=== PATIENT | female | born 1990 | race Caucasian/White ===

== ENCOUNTER 2020-02-02 15:23 | Emergency (ER) | payer MEDICAID ==
[~2020-02-02] VITALS: Ht 180.3 cm; Wt 49.9 kg
[2020-02-02] MEDS ORDERED: ACETAMINOPHEN500 M5 ORAL (15:32)
[2020-02-02] MEDS ORDERED: IBUPROFEN600 M1 ORAL ×2 (15:32→20:59)
[2020-02-02 15:45] LABS: APPEARANCE,URINE CLOUDY; BILIRUBIN, URINE NEGATIVE (NEGATIVE); COLOR,URINE PALE YELLOW; GLUCOSE, URINE (UA) NEGATIVE (NEGATIVE); KETONES,URINE 2+ (NEGATIVE); LEUKOCYTE ESTERASE ,URINE 1+ (NEGATIVE); NITRITE,URINE NEGATIVE (NEGATIVE); PH,URINE 6.5 (4.5-8.0); PROTEIN,URINE 1+ (NEGATIVE); UROBILINOGEN,URINE NORMAL MG/DL (0.0-1.0)
[2020-02-02] MEDS ORDERED: Morphine Sulfate 2mg/ml Inj(IV/IM USE ONLY) IVP ONE ×2 (15:45→19:45)
[2020-02-02 15:50] VITALS: BP 148/85
--- NOTE | 2020-02-02 15:51 | NUR ---
ED Nurse Note:pt. came with c/o right flank pain, VSS, A/Ox4 ambulatory, blood and urine sent to labs, x-rays done
[2020-02-02 16:00] LABS: BASOPHILS % (AUTO) 1.7 % (0.0-2.0); EOSINOPHILS % (AUTO) 0.3 % (0.0-3.0); HEMATOCRIT 42.7 % (37.0-47.0); HEMOGLOBIN 14.3 G/DL (12.0-16.0); LYMPHOCYTES % (AUTO) 29.5 % (20.0-45.0); MEAN CORPUSCULAR VOLUME 92 FL (80-99); MONOCYTES % (AUTO) 7.1 % (1.0-10.0); NEUTROPHILS % (AUTO) 61.3 % (45.0-75.0); PLATELET COUNT 281 K/UL (150-450); RED BLOOD COUNT 4.65 M/UL (4.20-5.40); WHITE BLOOD COUNT 12.6 K/UL (4.8-10.8)
--- NOTE | 2020-02-02 16:02 | Emergency Room Report ---
History of Present Illness General Chief Complaint: Back Pain-No Injury Source: Patient (Kavya Steele) Present Illness HPI 29-year-old female with history of a renal stone in the right kidney here complaining of sudden onset of 1 day of 10 out of 10 right flank pain with radiation to suprapubic area. Denies any urinary frequency urgency or dysuria at this time. Is very uncomfortable and reports that she has taken Advil for pain with minimal relief. Denies any fall or injury. Denies any hematuria. Denies chest pain, shortness of breath, headache or dizziness. Denies nausea vomiting, fever and chills at this time. (Kavya Steele) Allergies: Coded Allergies: No Known Allergies (Unverified , 02/02/20) COVID-19 Screening Contact w/high risk pt: No Recent Travel to affected area: No Experienced COVID-19 symptoms?: No COVID-19 Testing performed DIGITAL MEDIA COORDINATOR: No (Kavya Steele) Patient History Past Medical History: see triage record Past Surgical History: none Pertinent Family History: none Last Menstrual Period: 01/08/20 Now: No Immunizations: UTD Reviewed Nursing Documentation: PMH: Agreed; PSxH: Agreed (Kavya Steele) Review of Systems All Other Systems: negative except mentioned in HPI (Kavya Steele) Physical Exam Vital Signs Date Time Temp Pulse Resp B/P (MAP) Pulse Ox O2 Delivery O2 Flow Rate FiO2 02/02/20 15:28 98.2 95 19 148/85 (106) 96 Room Air Sp02 EP Interpretation: reviewed, normal General Appearance: alert, mild distress Head: normocephalic, atraumatic Eyes: bilateral eye normal inspection, bilateral eye PERRL ENT: hearing grossly normal, normal pharynx, no angioedema, normal voice Neck: full range of motion, supple/symm/no masses Respiratory: chest non-tender, lungs clear, normal breath sounds, no rhonchi, no retraction, speaking full sentences Cardiovascular #1: regular rate, rhythm, no edema Gastrointestinal: non tender, soft, no mass, no guarding Rectal: deferred Genitourinary: adnexa normal, cervix normal, ext genitalia/vag normal, CVA tenderness (R) Musculoskeletal: back normal, normal range of motion, gait/station normal, non- tender Neurologic: alert, motor strength/tone normal, oriented x3, sensory intact, responsive, speech normal Psychiatric: judgement/insight normal, memory normal, mood/affect normal, no suicidal/homicidal ideation Skin: no rash Lymphatic: no adenopathy (Kavya Steele) Medical Decision Making PA Attestation All diagnoses and treatment plans were reviewed and discussed with my supervising physician Dr. Lafleur (Kavya Steele) Diagnostic Impression: Primary Impression: Cyst, uterus Additional Impression: Renal calculus ER Course 29-year-old female with history of a renal stone in the right kidney here complaining of sudden onset of 1 day of 10 out of 10 right flank pain with radiation to suprapubic area. Denies any urinary frequency urgency or dysuria at this time. Is very uncomfortable and reports that she has taken Advil for pain with minimal relief. Denies any fall or injury. Denies any hematuria. Denies chest pain, shortness of breath, headache or dizziness. Denies nausea vomiting, fever and chills at this time. Ddx considered but are not limited to: appendicitis, cholecystis,, renal stone, gastritis, gastroenteritis, UTI, pylonephritis, SBO, diverticulitis, influenza with GI manifestation, WI, complication with Vital signs: are WNL, pt. is afebrile H&PE are most consistent with: Nonobstructive renal stones, pelvic nodule ORDERS: abdominal CT, abdominal pain set, pelvic abdominal ultrasound, tylenol 3 , ibuprofen ED INTERVENTIONS: NS bolus, Zofran, morphine I signed out the patient to Dr. Lafleur at 9 PM DISCHARGE: At this time pt. is stable for d/c to home. Will provide printed patient care instructions, and any necessary prescriptions. Care plan and follow up instructions have been discussed with the patient prior to discharge. Patient to follow-up with primary doctor also referral for MRI of lumbar region and renal MRI needed if worsening symptoms return to the emergency room (Kavya Steele) ER Course Patient examined by me. History also obtained. Pain now 1-2/10. She has had intermittent pain in the upper flank area which she equates to being a kidney stone. In the past one time she was discharged and then started having fever and chills and needed to be admitted to the hospital. She has had no fever or chills with this episode. Her abdominal exam is benign she has no CVA tenderness at this time. The patient has had help with Flomax in the past. This will be added to the discharge medications. Patient stable for outpatient observation and treatment (Liam Lafleur MD) Chest X-Ray Diagnostic Results Chest X-Ray Diagnostic Results : Chest X-Ray Ordered: Yes # of Views/Limited/Complete: 1 View Indication: Other EP Interpretation: Yes PA Xray: Interpretation reviewed, by supervising MD, and agrees with findings. Interpretation: no consolidation, no effusion, no pneumothorax Impression: No acute disease Electronically Signed by: Kavya Marti PA-C (Kavya Steele) Chest X-Ray Diagnostic Results : Electronically Signed by: Yandel Bolden documentation of Xray reviewed by me and is accurate, Liam Lafleur MD (Liam Lafleur MD) CT/MRI/US Diagnostic Results CT/MRI/US Diagnostic Results : Imaging Test Ordered: CT abdomen pelvis no contrast Impression FINDINGS: Lung bases: No significant abnormality. ABDOMEN: Liver: No significant abnormality. Gallbladder and bile ducts: No significant abnormality. No calcified stones. Pancreas: No significant abnormality. Spleen: No significant abnormality. Adrenals: No significant abnormality. Kidneys and ureters: Multiple bilateral nonobstructing renal calculi measuring up to 2 mm. Stomach and bowel: Moderate colonic stool. Bowel is nondilated. PELVIS: Appendix: No findings to suggest acute appendicitis. Bladder: No significant abnormality. No calcified stones. Reproductive: Indeterminate ovoid soft tissue nodule in the posterior right pelvis abutting the lower uterine segment measures 3.9 x 2.2 cm. This nodule appears separate from the right ovary which is normal in size. A 1.8 cm crenated left adnexal cystic structure is likely physiologic. ABDOMEN and PELVIS: Intraperitoneal space: Small amount of pelvic free fluid. Bones/joints: No acute fracture or malalignment. Soft tissues: Tiny fat-containing periumbilical hernia. Vasculature: No significant abnormality. No abdominal aortic aneurysm. Lymph nodes: No significant abnormality. IMPRESSION: 1. Indeterminate 3.9 cm nodule in the posterior right pelvis can be further characterized with pelvic ultrasound or MRI. 2. Trace pelvic free fluid. 3. Nonobstructing bilateral renal calculi. No hydronephrosis. (Kavya Steele) Last Vital Signs Date Time Temp Pulse Resp B/P (MAP) Pulse Ox O2 Delivery O2 Flow Rate FiO2 02/02/20 15:50 98.2 19 148/85 96 Room Air 02/02/20 15:28 95 (Kavya Steele) Status: improved (Liam Lafleur MD) Disposition: HOME, SELF-CARE Condition: Improved Scripts Ondansetron Odt* (ZOFRAN ODT*) 4 Mg Tab.rapdis 4 MG BC EVERY 8 HOURS, #10 TAB 0 Refills Prov: Liam Lafleur MD 02/02/20 Tamsulosin HCl (Flomax) 0.4 Mg Cap.er.24h 0.4 MG ORAL DAILY, #10 CAP Prov: Liam Lafleur MD 02/02/20 Ibuprofen* (MOTRIN*) 600 Mg Tablet 600 MG ORAL FOUR TIMES A DAY, #30 TAB 0 Refills Prov: Kavya Steele 02/02/20 Acetaminophen With Codeine (T#3) (TYLENOL #3 TAB*) Y Tab 1 TAB ORAL Q8HR PRN for For Pain for 3 Days, #10 TAB Prov: Kavya Steele 02/02/20 Referrals: NON PHYSICIAN (PCP) Patient Instructions: Renal Colic, [id number] Additional Instructions: Patient to follow-up with primary doctor also referral for MRI of lumbar region and renal MRI needed if worsening symptoms return to the emergency room Kavya Steele February 02, 2020 16:02 Liam Lafleur MD February 02, 2020 22:04
[2020-02-02 16:21] LABS: ANION GAP 9 mmol/L (5-15); BLOOD UREA NITROGEN 15 mg/dL (7-18); CALCIUM 9.8 MG/DL (8.5-10.1); CARBON DIOXIDE 27 MMOL/L (21-32); CHLORIDE 105 MMOL/L (98-107); SODIUM 141 MMOL/L (136-145)
[2020-02-02 16:26] LABS: ALANINE AMINOTRANSFERASE 25 U/L (12-78); ALBUMIN 4.3 G/DL (3.4-5.0); ALBUMIN/GLOBULIN RATIO 1.4 (1.0-2.7); ALKALINE PHOSPHATASE 54 U/L (46-116); ASPARTATE AMINO TRANSFERASE 21 U/L (15-37); BILIRUBIN,TOTAL 0.3 MG/DL (0.2-1.0)
[2020-02-02 16:27] LABS: CREATINE KINASE 187 U/L (26-308)
[2020-02-02 16:41] LABS: INR 0.9 (0.9-1.1)
--- NOTE | 2020-02-02 16:45 | Diagnostic Imaging Report ---
EXAM: XR Chest, 1 View CLINICAL HISTORY: PAIN TECHNIQUE: Frontal view of the chest. COMPARISON: No relevant prior studies available. FINDINGS: Lungs: Hypoventilatory lungs. Nonspecific bibasilar opacities. Pleural space: No significant pleural effusions or pneumothorax. Heart: No significant abnormality. No cardiomegaly. Mediastinum: No significant abnormality. Bones/joints: No acute osseous abnormality. IMPRESSION: Hypoventilatory lungs. Nonspecific bibasilar opacities may be related to atelectasis. An infectious or inflammatory process is not excluded. No significant pleural effusions or pneumothorax.
[2020-02-02] MEDS ORDERED: Omnipaque-300 100ml vial INJ PRN (17:30)
--- NOTE | 2020-02-02 18:41 | Diagnostic Imaging Report ---
EXAM: CT Abdomen and Pelvis Without Intravenous Contrast CLINICAL HISTORY: PAIN TECHNIQUE: Axial computed tomography images of the abdomen and pelvis without intravenous contrast. CTDI is 7.4 mGy and DLP is 349.1 mGy-cm. One or more of the following dose reduction techniques were used: automated exposure control, adjustment of the mA and/or kV according to patient size, use of iterative reconstruction technique. COMPARISON: No relevant prior studies available. FINDINGS: Lung bases: No significant abnormality. ABDOMEN: Liver: No significant abnormality. Gallbladder and bile ducts: No significant abnormality. No calcified stones. Pancreas: No significant abnormality. Spleen: No significant abnormality. Adrenals: No significant abnormality. Kidneys and ureters: Multiple bilateral nonobstructing renal calculi measuring up to 2 mm. Stomach and bowel: Moderate colonic stool. Bowel is nondilated. PELVIS: Appendix: No findings to suggest acute appendicitis. Bladder: No significant abnormality. No calcified stones. Reproductive: Indeterminate ovoid soft tissue nodule in the posterior right pelvis abutting the lower uterine segment measures 3.9 x 2.2 cm. This nodule appears separate from the right ovary which is normal in size. A 1.8 cm crenated left adnexal cystic structure is likely physiologic. ABDOMEN and PELVIS: Intraperitoneal space: Small amount of pelvic free fluid. Bones/joints: No acute fracture or malalignment. Soft tissues: Tiny fat-containing periumbilical hernia. Vasculature: No significant abnormality. No abdominal aortic aneurysm. Lymph nodes: No significant abnormality. IMPRESSION: 1. Indeterminate 3.9 cm nodule in the posterior right pelvis can be further characterized with pelvic ultrasound or MRI. 2. Trace pelvic free fluid. 3. Nonobstructing bilateral renal calculi. No hydronephrosis.
--- NOTE | 2020-02-02 19:30 | NUR ---
ED Nurse Note: recieved report from a n u r se to resume care, pt is in bed awake , alert and oriented x 4, being treated for right flank pain, pt is currently having pelvic exam done by marni LIU by willa banks, pt tolerated well, mild discharge noted, specimen sent to lab, pt also c/o pain, placed on monitoring and me dc at e d for pain, will monitor for effectiveness and pt disposition.
--- NOTE | 2020-02-02 19:40 | NUR ---
ED Nurse Note: Received report from Kamala. Ao x 4, no acute distress. EDPA completed pelvic exam and specimen sent down to the lab. Addendum: 02/02/20 at 2010 by [email or web address] ED Nurse Note: Recieved report from BRITTNEE Wiseman
[2020-02-02 19:45] VITALS: BP 128/74
--- NOTE | 2020-02-02 19:45 | NUR ---
ED Nurse Note: Pain med given. VSS, AOx4.
--- NOTE | 2020-02-02 20:07 | NUR ---
ED Nurse Note: Pt having bedside ultrasound, pain meds given effective, pain level at 2/10.
[2020-02-02] MEDS ORDERED: ACETAMINOPHEN-1 EAC1 ORAL (20:59)
--- NOTE | 2020-02-02 21:00 | NUR ---
ED Nurse Note: Ultra sound is completed. Re-attached monitor and safety measure observed.
--- NOTE | 2020-02-02 21:48 | Diagnostic Imaging Report ---
EXAM: US Pelvis Transabdominal, Complete CLINICAL HISTORY: PAIN TECHNIQUE: Real-time complete transabdominal pelvic ultrasound with image documentation. COMPARISON: CT 02/02/20 FINDINGS: Uterus/cervix: Uterus is normal in size and appearance and measures 4. 8 x 3.9 x 8.0 cm. Normal endometrium measures 7 mm. Avascular complex cystic structure abutting the lower uterine segment with homogeneous low- level internal echoes measures 3.6 x 2.4 x 2.3 cm. No myometrial mass. Right ovary: Unremarkable in size and appearance, measuring 3.4 x 2.2 x 2.3 cm. No adnexal mass. Normal blood flow. Left ovary: Unremarkable in size and appearance, measuring 3.0 x 2.1 x 1.9 cm. No adnexal mass. Normal blood flow. Free fluid: Trace pelvic free fluid. Bladder: Unremarkable as visualized. IMPRESSION: A 3.6 cm complex cystic structure in the right posterior pelvis abutting the lower uterine segment has imaging features suggestive of an endometrioma and corresponds to abnormality on recent CT. Recommend initial pelvic ultrasound follow-up in 6-12 weeks. Then, if unchanged and not surgically removed, yearly ultrasound follow-up.
--- NOTE | 2020-02-02 21:57 | Diagnostic Imaging Report ---
EXAM: US Retroperitoneal Complete, Renal CLINICAL HISTORY: MASS TECHNIQUE: Real-time complete ultrasound of the retroperitoneum with image documentation. COMPARISON: CT 02/02/20 FINDINGS: Right kidney: No hydronephrosis or focal renal lesions. Punctate bilateral renal calculi are not well seen. Left kidney: No hydronephrosis or focal renal lesions. Punctate bilateral renal calculi are not well seen. Bladder: Unremarkable as visualized. IMPRESSION: No hydronephrosis.
[2020-02-02] MEDS ORDERED: FLOMAX0.4 MG ORAL (22:06)
[2020-02-02] MEDS ORDERED: ONDANSETRON ODT4 MG BC (22:07)
[2020-02-02 22:10] VITALS: BP 116/65
[2020-02-02 22:15] VITALS: BP 128/74
--- NOTE | 2020-02-02 22:15 | NUR ---
ER DISCHARGE NOTE: Patient is cleared to be discharged per ERMD, pt is aox4, on room air, with stable vital signs. pt was given dc and prescription instructions, pt was able to verbalize understanding, pt id band and iv site removed without complications. pt is able to ambulate with steady gait. pt took all belongings.
== END 2020-02-02 22:15 | disposition home or self-care (01) ==
LOC: EMR 15:45
DX: N20.0 Calculus of kidney (principal); N85.8 Other specified noninflammatory disorders of uterus
CPT/HCPCS: 36415; 71045; 74178; 76770; 76830; 76856; 80053; 81003; 81025; 82550; 85025; 85610; 85730; 87210; 96361; 96374; 96375; 96376; G0480; J2270; J2405; J7030; Q9967; Z7502; 99284